=== PATIENT | female | born 1960 | race Caucasian/White ===

== ENCOUNTER 2022-01-08 17:44 | Inpatient (IN) ==
[2022-01-08] MEDS ORDERED: Melatonin 3 MG TABLET PO PRN (22:04)
[2022-01-08] MEDS ORDERED: Naloxone 0.4 MG/ML INJ IVP PRN (22:04)
[2022-01-08] MEDS ORDERED: Ondansetron 4 MG/2 ML VIAL IVP PRN (22:04)
[2022-01-08] MEDS ORDERED: Ringers Solution, Lactated 1,000 ML IVC SCH (22:15)
[2022-01-09 05:55] LABS: Hematocrit 34.7 % (35.3-44.9); Monocytes % 2.1 %
[2022-01-09 05:56] LABS: Basophils # 0.1 K/mcL (0.0-0.2); Basophils % 0.2 %; Eosinophils # 0.1 K/mcL (0.0-0.6); Eosinophils % 0.2 %; Hemoglobin 10.8 g/dL (11.5-15.4); Immature Granulocytes % 0.7 % (0-4); Lymphocytes # 1.2 K/mcL (0.6-4.6); Lymphocytes % 4.1 %; Mean Corpuscular HGB Conc 31.1 g/dL (31.6-35.5); Mean Corpuscular Hemoglobin 24.3 pg (28.0-33.3); Mean Corpuscular Volume 78.2 fL (83.0-100.0); Monocytes # 0.6 K/mcL (0.0-1.3); Neutrophils # 26.2 K/mcL (1.6-8.9); Platelet Count 349 K/mcL (140-400); Red Blood Count 4.44 M/mcL (3.82-4.97); Red Cell Distribution Width 15.8 % (11.5-14.5); Segmented Neutrophils % 92.7 %; White Blood Count 28.3 K/mcL (4.3-11.1)
[2022-01-09 06:15] LABS: Albumin 3.2 g/dL (3.5-5.7); Albumin/Globulin Ratio 0.9 (1.1-2.2); Bilirubin,Total 0.3 mg/dL (0.3-1.0); Calcium 8.8 mg/dL (8.6-10.3); Globulin 3.7 g/dL (2.4-3.5); Magnesium 1.7 mg/dL (1.6-2.6); Phosphorous 3.2 mg/dL (2.7-4.5); Potassium 3.6 mEq/L (3.5-5.1); Total Protein 6.9 g/dL (6.4-8.9)
[2022-01-09] MEDS ORDERED: 0.9 % Sodium Chloride 1,000 ML IVC SCH (07:45)
[2022-01-09] MEDS ORDERED: *HR* Midazolam HCl 2 MG/2 ML VIAL ONE (08:08)
[2022-01-09] MEDS ORDERED: Lidocaine -MPF 2% 2 ML VIAL ONE (08:08)
[2022-01-09] MEDS ORDERED: *HR* FentaNYL (PF) 100 MCG/2 ML VIAL ONE (08:08)
[2022-01-09] MEDS ORDERED: *HR* Propofol 200 MG/20 ML VIAL IVP ONE (08:08)
[2022-01-09] MEDS ORDERED: *HR* HYDROcodone/Acet 5/325 mg TABLET PO PRN (08:58)
[2022-01-09] MEDS ORDERED: cefTRIAXone 1,000 MG in 0.9 % Sodium Chloride 10 ML IVPB SCH (09:00)
[2022-01-09] MEDS ORDERED: PrednisoLONE Acetate 1% Opth 5 ML BOTTLE BOTH EYES SCH (09:00)
[2022-01-09] MEDS ORDERED: ceFAZolin 2,000 MG in Water for inj. (sterile) 20 ML IVP ONE (09:43)
[2022-01-09] MEDS ORDERED: Ondansetron 4 MG/2 ML VIAL ONE (10:03)
[2022-01-09] MEDS ORDERED: Ondansetron 4 MG/2 ML VIAL IVP PRN (11:22)
[2022-01-09] MEDS ORDERED: Melatonin 3 MG TABLET PO PRN (11:22)
[2022-01-09] MEDS ORDERED: Ringers Solution, Lactated 1,000 ML IVC SCH (11:22)
[2022-01-09] MEDS ORDERED: Naloxone 0.4 MG/ML INJ IVP PRN (11:22)
[2022-01-09] MEDS: Piperacillin/Tazobactam 3.375 GM in 0.9 % Sodium Chloride Mini Bag 100 ML IVPB SCH ×2 (12:15→20:09)
[2022-01-09] MEDS: PrednisoLONE Acetate 1% Opth 5 ML BOTTLE BOTH EYES SCH ×10 (12:16→23:58)
[2022-01-09] MEDS ORDERED: Piperacillin/Tazobactam 3.375 GM in 0.9 % Sodium Chloride Mini Bag 100 ML IVPB SCH (22:20)
[2022-01-10] MEDS: PrednisoLONE Acetate 1% Opth 5 ML BOTTLE BOTH EYES SCH ×20 (00:01→21:19)
[2022-01-10] MEDS: Piperacillin/Tazobactam 3.375 GM in 0.9 % Sodium Chloride Mini Bag 100 ML IVPB SCH ×3 (04:25→21:18)
[2022-01-10 05:44] LABS: Basophils % 0.1 %; Hematocrit 32.5 % (35.3-44.9); Hemoglobin 9.9 g/dL (11.5-15.4); Immature Granulocytes % 0.5 % (0-4); Lymphocytes # 1.4 K/mcL (0.6-4.6); Lymphocytes % 6.2 %; Mean Corpuscular HGB Conc 30.5 g/dL (31.6-35.5); Mean Corpuscular Hemoglobin 23.7 pg (28.0-33.3); Mean Corpuscular Volume 77.9 fL (83.0-100.0); Mean Platelet Volume 10.2 fL (9.4-12.4); Monocytes # 1.4 K/mcL (0.0-1.3); Monocytes % 6.4 %; Neutrophils # 19.7 K/mcL (1.6-8.9); Platelet Count 373 K/mcL (140-400); Red Blood Count 4.17 M/mcL (3.82-4.97); Red Cell Distribution Width 15.7 % (11.5-14.5); Segmented Neutrophils % 86.8 %; White Blood Count 22.7 K/mcL (4.3-11.1)
[2022-01-10 06:07] LABS: Calcium 8.9 mg/dL (8.6-10.3); Potassium 4.3 mEq/L (3.5-5.1)
[2022-01-11] MEDS: PrednisoLONE Acetate 1% Opth 5 ML BOTTLE BOTH EYES SCH ×9 (01:40→11:45)
[2022-01-11] MEDS: Piperacillin/Tazobactam 3.375 GM in 0.9 % Sodium Chloride Mini Bag 100 ML IVPB SCH (05:20)
[2022-01-11 05:53] LABS: Basophils % 0.2 %; Eosinophils # 0.1 K/mcL (0.0-0.6); Eosinophils % 0.6 %; Hematocrit 32.8 % (35.3-44.9); Hemoglobin 9.9 g/dL (11.5-15.4); Immature Granulocytes % 0.6 % (0-4); Lymphocytes # 1.7 K/mcL (0.6-4.6); Lymphocytes % 13.8 %; Mean Corpuscular HGB Conc 30.2 g/dL (31.6-35.5); Mean Corpuscular Hemoglobin 23.9 pg (28.0-33.3); Mean Platelet Volume 10.4 fL (9.4-12.4); Monocytes % 7.8 %; Neutrophils # 9.6 K/mcL (1.6-8.9); Platelet Count 376 K/mcL (140-400); Red Blood Count 4.15 M/mcL (3.82-4.97); Red Cell Distribution Width 15.8 % (11.5-14.5); White Blood Count 12.5 K/mcL (4.3-11.1)
[2022-01-11 05:55] VITALS: BP 118/73; PULSE 59; TEMP 98.5; O2SAT 95
[2022-01-11 06:32] LABS: Calcium 8.8 mg/dL (8.6-10.3); Potassium 3.3 mEq/L (3.5-5.1)
== END 2022-01-11 13:17 | disposition home or self-care (01) | DRG 854 ==
LOC: 3ANU → SUATTDRO 20:55
PROVIDERS: ADMIT Internal Medicine; ATTEND Internal Medicine